=== PATIENT | male | born 1990 | race Caucasian/White ===

== ENCOUNTER 2016-05-31 06:54 | Emergency (ER) | payer OTHER ==
[2016-05-31] MEDS ORDERED: ONDANSETRON 4 MG ODT TAB ONE (07:22)
== END 2016-05-31 07:35 | disposition home or self-care (01) ==
LOC: ED 06:54
DX: R11.2 Nausea with vomiting, unspecified (principal); R19.7 Diarrhea, unspecified; F17.210 Nicotine dependence, cigarettes, uncomplicated
CPT/HCPCS: 99283 ×2; A9270